=== PATIENT | female | born 1970 | race African-American/Black ===

== ENCOUNTER 2017-06-21 10:06 | Emergency (ER) | payer BC, MEDICAID ==
[~2017-06-21] VITALS: Ht 165.1 cm; Wt 100.0 kg
[2017-06-21] MEDS ORDERED: LOSA25TA12 PO (10:20)
[2017-06-21 11:15] VITALS: BP 154/104
[2017-06-21] MEDS ORDERED: ONDANSETRON 4MG ODT PO ONE (11:15)
[2017-06-21] MEDS ORDERED: HYDROCODONE/ACETAMINOPHEN 5/325MG TABLET PO ONE (11:15)
[2017-06-21] MEDS ORDERED: KETOROLAC 60MG/2ML VIAL IM ONE (11:15)
== END 2017-06-21 14:28 | disposition home or self-care (01) ==
LOC: ER 10:41
DX: M25.511 Pain in right shoulder (principal); I10 Essential (primary) hypertension; J45.909 Unspecified asthma, uncomplicated
CPT/HCPCS: 29105; 73030; 81025; 96372; 99284; J1885; J7030; Q0162